=== PATIENT | female | born 1990 | race African-American/Black ===

== ENCOUNTER 2016-11-16 17:16 | Inpatient (IN) | payer OTHER ==
[2016-11-16 17:22] VITALS: BMI 33.3
--- NOTE | 2016-11-16 17:45 | PDOC ---
History of Present Illness - General History Source: Patient Exam Limitations: No Limitations - History of Present Illness Initial Comments: 11/16/16 18:31 The patient is a 26 year old female with a significant past medical history of asthma and fibroids, who presents to the ED with crampy left sided abdominal pain that began one week ago. She has associated symptoms of urination frequency and urgency, but denies hematuria, dysuria. She describes the abdominal pain as 9.5/10 in severity. Patient states the pain is worse in the morning. She states she had Ibuprofen 800mg but with no alleviation. She denies fever, chills, nausea, vomiting, diarrhea. She states she went to see her CREAM DIPPER Dr. Sanchez for vaginal bleeding and pain. She states she found a fibroid the size of a grapefruit. She was given OCP , which helped stopped the bleeding but not the pain. LMP: September 10- October 26 No allergies to meds Denies smoking cigarettes, drug use. She drinks occasionally. <José Luis Richardson - Last Filed: 11/16/16 22:26> <Lien Mcdaniel - Last Filed: 11/16/16 23:31> - General Chief Complaint: Pain Stated Complaint: ABD PAIN Time Seen by Provider: 11/16/16 17:37 Past History <José Luis Richardson - Last Filed: 11/16/16 22:26> - Past Medical History Other medical history: NONE - Psycho/Social/Smoking Cessation Hx Anxiety: No Suicidal Ideation: No Smoking History: Never smoked Hx Alcohol Use: Yes Drug/Substance Use Hx: No Substance Use Type: None <Lien Mcdaniel - Last Filed: 11/16/16 23:31> - Past Medical History Allergies/Adverse Reactions: Allergies Allergy/AdvReac Type Severity Reaction Status Date / Time No Known Allergies Allergy Verified 11/16/16 17:22 Home Medications: Ambulatory Orders NK [No Known Home Medication] 11/16/16 Review of Systems - Review of Systems Able to Perform ROS?: Yes Comments:: 11/16/16 18:31 CONSTITUTIONAL: Absent: fever, chills, diaphoresis, generalized weakness, malaise, loss of appetite HEENT: Absent: rhinorrhea, nasal congestion, throat pain, throat swelling, difficulty swallowing, mouth swelling, ear pain, eye pain, visual Changes CARDIOVASCULAR: Absent: chest pain, syncope, palpitations, irregular heart rate, lightheadedness , peripheral edema RESPIRATORY: Absent: cough, shortness of breath, dyspnea with exertion, orthopnea, wheezing, stridor, hemoptysis GASTROINTESTINAL: Present: left sided abdominal pain. Absent: abdominal distension, nausea, vomiting, diarrhea, constipation, melena, hematochezia GENITOURINARY: Present: urgency, frequency. Absent: dysuria, hesitancy, hematuria, flank pain, genital pain MUSCULOSKELETAL: Absent: myalgia, arthralgia, joint swelling SKIN: Absent: rash, itching, pallor HEMATOLOGIC/IMMUNOLOGIC: Absent: easy bleeding, easy bruising, lymphadenopathy, frequent infections ENDOCRINE: Absent: unexplained weight gain, unexplained weight loss, heat intolerance, cold intolerance NEUROLOGIC: Absent: headache, focal weakness or paresthesias, dizziness, unsteady gait, seizure, mental status changes, bladder or bowel incontinence PSYCHIATRIC: Absent: anxiety, depression, suicidal or homicidal ideation, hallucinations. <José Luis Richardson - Last Filed: 11/16/16 22:26> *Physical Exam - Vital Signs Last Vital Signs Temp Pulse Resp BP Pulse Ox 98.5 F 84 20 114/54 100 11/16/16 17:18 11/16/16 17:18 11/16/16 17:18 11/16/16 17:18 11/16/16 17:18 - Physical Exam Comments: 11/16/16 18:33 GENERAL: Well developed, well nourished. Awake and alert. No acute distress. HEENT: Normocephalic, atraumatic. PERRLA, EOMI. No conjunctival pallor. Sclera are non- icteric. Moist mucous membranes. Oropharynx is clear. NECK: Supple. Full ROM. No JVD. Carotid pulses 2+ and symmetric, without bruits. No thyromegaly. No lymphadenopathy. CARDIOVASCULAR: Regular rate and rhythm. No murmurs, rubs, or gallops. Distal pulses are 2+ and symmetric. PULMONARY: No evidence of respiratory distress. Lungs clear to auscultation bilaterally. No wheezing, rales or rhonchi. ABDOMINAL: Adnexal tenderness, more left lower quadrant. No rebound or guarding. No organomegaly. Normoactive bowel sounds. MUSCULOSKELETAL Normal range of motion at all joints. No bony deformities or tenderness. No CVA tenderness. EXTREMITIES: No cyanosis. No clubbing. No edema. No calf tenderness. SKIN: Warm and dry. Normal capillary refill. No rashes. No jaundice. NEUROLOGICAL: Alert, awake, appropriate. Cranial nerves 2-12 intact. No deficits to light touch and temperature in face, upper extremities and lower extremities. No motor deficits in the in face, upper extremities and lower extremities. Normoreflexic in the upper and lower extremities. Normal speech. Toes are down-going bilaterally. Gait is normal without ataxia. PSYCHIATRIC: Cooperative. Good eye contact. Appropriate mood and affect. <José Luis Richardson - Last Filed: 11/16/16 22:26> - Vital Signs Last Vital Signs Temp Pulse Resp BP Pulse Ox 98.5 F 84 20 114/54 100 11/16/16 17:18 11/16/16 17:18 11/16/16 17:18 11/16/16 17:18 11/16/16 17:18 <Lien Mcdaniel - Last Filed: 11/16/16 23:31> ED Treatment Course - LABORATORY CBC & Chemistry Diagram: 11/16/16 18:27 11/16/16 19:25 - RADIOLOGY Radiology Studies Ordered: 11/16/16 22:26 EXAM: ULTRASOUND PELVIS, COMPLETE AND TRANSVAGINAL ULTRASOUND AND DUPLEX SCAN PELVIS, COMPLETE No ovarian torsion. Color flow with appropriate arterial and venous waveforms on the left and arterial waveforms on the right. No free fluid. Enlarged ureterus containing a 7.0 cm fibroid. Endometrial stripe complex not well seen. Unremarkable visualized portion of bladder. THIS DOCUMENT HAS BEEN ELECTRONICALLY SIGNED Marguerite Wray M.D. 11/16/2016 22:20 EST <José Luis Richardson - Last Filed: 11/16/16 22:26> - LABORATORY CBC & Chemistry Diagram: 11/16/16 18:27 11/16/16 19:25 <Lien Mcdaniel - Last Filed: 11/16/16 23:31> Medical Decision Making - Medical Decision Making 11/16/16 23:28 26-year-old female who is not . She has a history of fibroids and has had some pain Ultrasound shows a 7 cm uterine fibroid, no torsion, no masses CBC and chemistries and urine were unremarkable She is stable vital signs and no fever I called Dr. Fernandez who was covering for Dr. Yamini Cullen and Dr. Silva said this patient was going to be admitted to have a hysterectomy During the whole patient encounter. The patient never said that she knew she was having a hysterectomy tomorrow. We did NOT receive a call from the community board member prior to the patient's arrival. I noticed now that Dr. Silva placed orders into the computer <Lien Mcdaniel - Last Filed: 11/16/16 23:31> *DC/Admit/Observation/Transfer - Attestations Scribe Attestion: 11/16/16 18:33 Documentation prepared by José Luis Richardson, acting as auditor medical claims for Lien Mcdaniel MD. <José Luis Richardson - Last Filed: 11/16/16 22:26> - Discharge Dispostion Admit: Yes <Lien Mcdainel - Last Filed: 11/16/16 23:31> Diagnosis at time of Disposition: Pelvic pain Fibroid Qualifiers: Uterine leiomyoma location: unspecified location Qualified Code(s): D25.9 - Leiomyoma of uterus, unspecified - Referrals Referrals: Lashae Watts [Primary Care Provider] - - Patient Instructions
[2016-11-16 18:37] LABS: BASOPHIL 1.2 % (0-2.0); MCH 28.2 pg (25.7-33.7); MCHC 32.6 g/dl (32.0-36.0); MEAN CELL VOLUME 86.6 fl (80-96); MEAN PLT VOLUME 9.3 fl (7.5-11.1); NEUTROPHILS 55.5 % (42.8-82.8); PLATELET COUNT 289 K/MM3 (134-434); RDW 13.6 % (11.6-15.6); WHITE BLOOD COUNT 9.9 K/mm3 (4.0-10.0)
[2016-11-16 18:38] LABS: URINE APPEARANCE CLEAR; URINE BILIRUBIN NEGATIVE (NEGATIVE); URINE BLOOD NEGATIVE (NEGATIVE); URINE COLOR YELLOW; URINE GLUCOSE (UA) NEGATIVE (NEGATIVE); URINE KETONE TRACE (NEGATIVE); URINE LEUK ESTERASE NEGATIVE (NEGATIVE); URINE NITRITE NEGATIVE (NEGATIVE); URINE PROTEIN NEGATIVE (NEGATIVE); URINE UROBILINOGEN NEGATIVE mg/dL (0.2-1.0)
[2016-11-16 20:16] LABS: ALBUMIN 3.3 g/dl (3.4-5.0); ANION GAP 7 (8-16); BILIRUBIN,TOTAL 0.1 mg/dL (0.2-1.0); CO2 26 mmol/L (21-32); CREATININE 0.9 mg/dL (0.55-1.02); GLUCOSE,RANDOM 92 mg/dL (74-106); SGOT/AST 9 U/L (15-37); SGPT/ALT 15 U/L (12-78)
[2016-11-16 20:17] LABS: ALK PHOS 46 U/L (45-117)
[2016-11-16] MEDS ORDERED: ACETAMINOPHEN 325 MG TABLET (FP) PO PRN (23:09)
[2016-11-16] MEDS: LACTATED RINGERS SOLUTION 1,000 ML IV SCH (23:20)
[2016-11-17] MEDS: LACTATED RINGERS SOLUTION 1,000 ML IV SCH ×2 (05:02→21:18)
[2016-11-17] MEDS ORDERED: ROPIVACAINE HCL 0.5% 30ML VIAL ONE (10:57)
[2016-11-17] MEDS ORDERED: MIDAZOLAM HCL 2 MG/2 ML SINGLE DOSE VIAL ONE ×2 (11:09)
[2016-11-17] MEDS ORDERED: ceFAZolin SODIUM 1 GM VIAL IVPB ONE ×2 (12:50)
[2016-11-17] MEDS ORDERED: LIDOCAINE HCL/PF 2% SDV 5ML VIAL ONE (12:59)
[2016-11-17] MEDS ORDERED: PROPOFOL 20 ML ONE (12:59)
[2016-11-17] MEDS ORDERED: DEXAMETHASONE SOD PHOSPHATE 4 MG/1 ML VIAL ONE ×2 (13:00)
[2016-11-17] MEDS ORDERED: ROCURONIUM BROMIDE 50 MG/5 ML VIAL ONE (13:00)
[2016-11-17] MEDS ORDERED: VASOPRESSIN 20 UNITS/ML VIAL IV ONE (13:02)
[2016-11-17] MEDS ORDERED: ONDANSETRON 4 MG/2 ML VIAL IVPUSH PRN ×2 (13:16→14:23)
[2016-11-17] MEDS ORDERED: HYDROmorphone HCL CARPU-JECT 1 MG/1 ML DISP.SYRIN IVPUSH PRN (13:16)
[2016-11-17] MEDS ORDERED: LACTATED RINGERS SOLUTION 1,000 ML IV SCH ×3 (13:30→14:23)
[2016-11-17] MEDS: HYDROmorphone HCL CARPU-JECT 1 MG/1 ML DISP.SYRIN IVPUSH PRN ×4 (14:05→14:25)
[2016-11-17] MEDS ORDERED: HYDROmorphone HCL CARPU-JECT 2 MG/1 ML DISP.SYRIN ONE (14:08)
--- NOTE | 2016-11-17 14:14 | OP ---
Operative Note - Note: Operative Date: 11/17/16 Pre-Operative Diagnosis: Leiomyoma of uterus Operation: Open abdominal myomectomy Post-Operative Diagnosis: Same as Pre-op Surgeon: Yamini Sanchez Professional Bass Fisherman: Heri Goodwin Anesthesiologist/RING STAMPER: Getachew Wu Anesthesia: General Specimens Removed: Leiomyoma x3 Estimated Blood Loss (mls): 50 Fluid Volume Replaced (mls): 1,000 Operative Report Dictated: Yes
--- NOTE | 2016-11-17 14:14 | SURG ---
Surgery Engineering And Scientific Programmer Note Engineering And Scientific Programmer: Heri Goodwin PA-C Date of Service: 11/17/16 Diagnosis: Leiomyoma of uterus Procedure: Open abdominal myomectomy I was present for the entirety of the operative procedure. For further detail, please refer to operative report. Visit type - Case Type Case Type: ED Admission - New patient This patient is new to me today: Yes Date on this admission: 11/17/16
[2016-11-17] MEDS: HYDROmorphone HCL CARPU-JECT 1 MG/1 ML DISP.SYRIN IVPB PRN ×2 (16:47→21:19)
[2016-11-17] MEDS: traMADol HCL 50 MG TABLET PO SCH ×2 (17:39→21:00)
[2016-11-18] MEDS: traMADol HCL 50 MG TABLET PO SCH ×3 (02:45→13:41)
[2016-11-18] MEDS: LACTATED RINGERS SOLUTION 1,000 ML IV SCH (06:31)
[2016-11-18 08:00] LABS: MCH 28.7 pg (25.7-33.7); MCHC 33.1 g/dl (32.0-36.0); MEAN CELL VOLUME 86.6 fl (80-96); MEAN PLT VOLUME 9.3 fl (7.5-11.1); PLATELET COUNT 266 K/MM3 (134-434); RDW 13.4 % (11.6-15.6); WHITE BLOOD COUNT 17.2 K/mm3 (4.0-10.0)
[2016-11-18 08:39] LABS: ANION GAP 7 (8-16); CALCIUM 8.6 mg/dL (8.5-10.1); CO2 27 mmol/L (21-32); CREATININE 0.6 mg/dL (0.55-1.02); GLUCOSE,RANDOM 93 mg/dL (74-106)
--- NOTE | 2016-11-18 09:05 | PN ---
Progress Note, Physician Chief Complaint: Post op History of Present Illness: 26 yo with Leiomyoma of the uterus, status post abdominal myomectomy, seen and evaluated. She c/o incision pain and nausea. - Current Medication List Current Medications: Active Medications Acetaminophen (Tylenol -) 650 mg PO Q4H PRN PRN Reason: FEVER OR PAIN Hydromorphone HCl (Dilaudid Injection -) 0.25 mg IVPUSH [id number] PRN PRN Reason: PAIN Stop: 11/20/16 13:17 Last Admin: 11/17/16 14:25 Dose: 0.25 mg Hydromorphone HCl (Dilaudid Injection -) 1 mg IVPB Q4H PRN PRN Reason: PAIN Stop: 11/18/16 16:35 Last Admin: 11/17/16 21:19 Dose: 1 mg Lactated Ringer's (Lactated Ringers Solution) 1,000 mls @ 125 mls/hr IV ASDIR TIFFANIE Last Admin: 11/18/16 06:31 Dose: 125 mls/hr Ibuprofen (Motrin -) 800 mg PO Q8H PRN PRN Reason: FEVER Tramadol HCl (Ultram -) 50 mg PO Q6H [facility] Last Admin: 11/18/16 02:45 Dose: 50 mg - Objective Vital Signs: Vital Signs Temperature 98.1 F 11/18/16 05:45 Pulse Rate 81 11/18/16 05:45 Respiratory Rate 20 11/18/16 05:45 Blood Pressure 114/64 11/18/16 05:45 O2 Sat by Pulse Oximetry (%) 99 11/17/16 21:32 Constitutional: Yes: Well Nourished Eyes: Yes: Conjunctiva Clear HENT: Yes: Atraumatic Neck: Yes: Supple, Trachea Midline Cardiovascular: Yes: Regular Rate and Rhythm Respiratory: Yes: Regular, CTA Bilaterally Gastrointestinal: Yes: Normal Bowel Sounds Genitourinary: Yes: WNL Breast(s): Yes: WNL Musculoskeletal: Yes: WNL Extremities: Yes: WNL Wound/Incision: Yes: Clean/Dry, Dressing Dry and Intact Neurological: Yes: Alert, Oriented ...Motor Strength: WNL Psychiatric: Yes: Alert, Oriented Labs: CBC, BMP 11/18/16 06:00 11/18/16 06:00 Problem List - Problems (1) Status post myomectomy Code(s): Z98.890 - OTHER SPECIFIED POSTPROCEDURAL STATES Assessment/Plan Status post Myomectomy Stable D/C IV Analgesia Motrin PO PRN pain Clear liquid diet Ambulation Continue Post op care
--- NOTE | 2016-11-18 14:13 | OP ---
DATE OF OPERATION: 11/17/2016 PREOPERATIVE DIAGNOSIS: Leiomyomatous uterus. OPERATION: Abdominal myomectomy. POSTOPERATIVE DIAGNOSIS: Leiomyomatous uterus. SURGEON: Yamini Sanchez MD MANAGER HUMAN CAPITAL: ANGELINA Engel. ANESTHESIA: General. DESCRIPTION OF PROCEDURE: Patient was taken to the operating room, placed in supine position, prepped and draped in the usual sterile fashion. Timeout was performed in accordance hospital regulation. Pfannenstiel skin incision was made with a scalpel. Cautery was then used to go through the layers of abdominal wall to the level of the fascia. Fascia was cut in the midline, and cautery was then used to open the fascia in smiling fashion. Kochers were then used to bluntly and sharply dissect the rectus muscle and fascia. Muscle was split in the midline, peritoneal cavity was then entered and carried up and downward. The uterus was then exteriorized. A large 8-cm posterior myoma was noted and 2 small myomas anteriorly and another less than 1 cm and another 3-cm myoma anteriorly. Tourniquet was placed of the uterus. Progestin was then infiltrated into the of the uterus and the myometrium. A transverse posterior incision was made approximately 8 cm in size down to the level of the myoma. Blunt and sharp technique was then used to enucleate the myoma. The uterus was then closed in layers using 0 Vicryl suture continuous and locking, imbricating the serosal layer with the 0 Vicryl suture. The other myomas were removed, enucleated out using cautery and blunt and sharp technique, and then was closed using 0 Vicryl suture. [id number] sutures were used to tie off any bleeding and to maintain hemostasis. After hemostasis was achieved, Interceed was placed over the uterus, and the uterus was then interiorized, abdominal sweep done. Peritoneum closed using 0 Vicryl suture. Fascia was then closed using 0 Vicryl suture in 2 ports. Skin was then closed using 4-0 Biosyn suture in subcuticular fashion. Wound was washed and dressed. Patient tolerated the procedure well, was taken to recovery room in stable condition. Estimated blood loss 50 mL. YAMINI SANCHEZ M.D. ANDREINA/[id number]
--- NOTE | 2016-11-18 14:52 | PN ---
Progress Note (short form) - Note Progress Note: Called due to dizziness will call hospitalist to evaluate patient cbc stat nurse thinks it may be a result Ultram pt had dilaudid in am pt admits to meds make sleepy 86/70 inc to 200cchr pulse 96 prior O2 given repeat Bp 112/64 Hr 84
--- NOTE | 2016-11-18 15:52 | CONSULT ---
Consultation: REQUESTING PROVIDER: Dr. Sanchez CONSULT REQUEST: We have been asked to medically evaluate this patient for dizziness HISTORY OF PRESENT ILLNESS: 26 year old F POD#1 s/p open abdominal myomectomy for fibroids with a chief complaint of dizziness. Patient states around 3 pm, she stood up and suddenly felt dizzy. She describes a sensation of lightheadedness. She sat back down immediately and felt better. Patient denies headache, chest pain, shortness of breath, slurred speech, weakness, tinnitus, hearing loss. Patient received a dose of dilaudid last night and three doses of ultram today (last dose at 230). Blood pressure after sitting back down was 86/70. Patient's fluids increased to 200cc/hr, BP improved to 112/64. REVIEW OF SYSTEMS: CONSTITUTIONAL: Absent: fever, chills, diaphoresis, generalized weakness, malaise, loss of appetite, weight change HEENT: Absent: rhinorrhea, nasal congestion, throat pain, throat swelling, difficulty swallowing, mouth swelling, ear pain, eye pain, visual changes CARDIOVASCULAR: Absent: chest pain, syncope, palpitations, irregular heart rate, peripheral edema Present: Lightheadedness RESPIRATORY: Absent: cough, shortness of breath, dyspnea with exertion, orthopnea, wheezing, stridor, hemoptysis GASTROINTESTINAL: Absent: abdominal distension, nausea, vomiting, diarrhea, constipation, melena, hematochezia Present: abdominal pain GENITOURINARY: Absent: dysuria, frequency, urgency, hesitancy, hematuria, flank pain, genital pain MUSCULOSKELETAL: Absent: myalgia, arthralgia, joint swelling, back pain, neck pain SKIN: Absent: rash, itching, pallor HEMATOLOGIC/IMMUNOLOGIC: Absent: easy bleeding, easy bruising, lymphadenopathy, frequent infections ENDOCRINE: Absent: unexplained weight gain, unexplained weight loss, heat intolerance, cold intolerance NEUROLOGIC: Absent: headache, focal weakness or paresthesias, unsteady gait, seizure, mental status changes, bladder or bowel incontinence Present: dizziness PSYCHIATRIC: Absent: anxiety, depression, suicidal or homicidal ideation, hallucinations. PHYSICAL EXAMINATION Vital Signs - 24 hr 11/17/16 11/17/16 11/17/16 15:55 16:10 16:20 Temperature 98.9 F 98.5 F Pulse Rate 73 74 81 Respiratory 14 16 20 Rate Blood Pressure 137/74 139/71 144/75 O2 Sat by Pulse 100 100 99 Oximetry (%) 11/17/16 11/17/16 11/17/16 17:53 21:16 21:32 Temperature 98.8 F 97.9 F 97.9 F Pulse Rate 79 82 82 Respiratory 20 20 20 Rate Blood Pressure 133/68 127/70 127/70 O2 Sat by Pulse 99 Oximetry (%) 11/18/16 11/18/16 11/18/16 01:17 05:45 09:00 Temperature 98.0 F 98.1 F 99.0 F Pulse Rate 76 81 73 Respiratory 20 20 20 Rate Blood Pressure 127/60 114/64 131/71 O2 Sat by Pulse 20 L Oximetry (%) GENERAL: Awake, alert, and fully oriented, in no acute distress. HEAD: Normal with no signs of trauma. EYES: Extraocular movements intact, sclera anicteric, conjunctiva clear. No lid lag. EARS, NOSE, THROAT: oropharynx clear without exudates. Moist mucous membranes. NECK: Normal range of motion, supple without lymphadenopathy, JVD, or masses. LUNGS: Breath sounds equal, clear to auscultation bilaterally.(Only anterior lungs auscultated due to pain) No wheezes, and no crackles. No accessory muscle use. HEART: Regular rate and rhythm, normal S1 and S2 without murmur, rub or gallop. ABDOMEN: Soft, diffuse tenderness post op, not distended, hypoactive bowel sounds, + guarding, no rebound, no masses. No hepatomegaly or splenomegaly. MUSCULOSKELETAL: Normal range of motion at all joints. No bony deformities or tenderness. No CVA tenderness. UPPER EXTREMITIES: 2+ radial pulses, warm, well-perfused. No cyanosis. No clubbing. Cap refill <2 seconds. No peripheral edema. LOWER EXTREMITIES: 2+ DP pulses, warm, well-perfused. No calf tenderness. No peripheral edema. Negative cassie's sign NEUROLOGICAL: Cranial nerves II-XII intact. Strength difficult to assess due to pain. 2+ brachial reflexes. Normal speech. Gait not observed PSYCHIATRIC: Cooperative. Good eye contact. Appropriate mood and affect. SKIN: Warm, dry, normal turgor, no rashes or lesions noted. Laboratory Results - last 24 hr 11/18/16 11/18/16 06:00 06:00 WBC 17.2 H D RBC 4.36 Hgb 12.5 Hct 37.8 MCV 86.6 MCH 28.7 MCHC 33.1 RDW 13.4 Plt Count 266 MPV 9.3 Sodium 137 Potassium 4.2 Chloride 103 Carbon Dioxide 27 Anion Gap 7 L BUN 5 L D Creatinine 0.6 D Random Glucose 93 Calcium 8.6 Active Medications Generic Name Dose Route Start Last Admin Trade Name Freq PRN Reason Stop Dose Admin Acetaminophen 650 mg 11/17/16 14:23 Tylenol - PO Q4H PRN FEVER OR PAIN Hydromorphone HCl 0.25 mg 11/17/16 14:23 11/17/16 14:25 Dilaudid Injection - IVPUSH 11/20/16 13:17 0.25 mg [id number] PRN Administration PAIN Hydromorphone HCl 1 mg 11/17/16 16:36 11/17/16 21:19 Dilaudid Injection - IVPB 11/18/16 16:35 1 mg Q4H PRN Administration PAIN Ibuprofen 800 mg 11/18/16 08:59 Motrin - PO Q8H PRN FEVER Tramadol HCl 50 mg 11/17/16 14:30 11/18/16 13:41 Ultram - PO 50 mg Q6H TIFFANIE Administration ASSESSMENT/PLAN: 26 year old F POD 1 s/p abdominal myomectomy presenting with dizziness after standing up. #Dizziness -Given the patient's recent intraabdominal surgery and decreased PO intake per pt, she is likely volume depleted leading to orthostatic hypotension, which is further exacerbated by opioid use. -BP 86/70, improved upon sitting down and with IVF to 112/64 -D/c ultram as dizziness is a common side effect (10-33%) as well as orthostatic hypotension (2-5%) -Give 1 L NS bolus followed by IVF NS 150 cc/hr. #Asthma -Not currently active -Patient states asthma has been in remission for past few years -Pt will follow up outpatient. #Ppx DVT ppx - Heparin SQ 5000 units Q8 - SCDs #FEN/GI -IVF NS at 150 cc/hr -Will check BMP, Mg, and phos in the AM. -Patient on clear liquid diet. Advance as tolerated per primary team once patient has bowel function. Dispo: We will continue to follow the patient. Thank you for this consultative opportunity. Visit type - Emergency Visit Emergency Visit: No - New Patient This patient is new to me today: Yes Date on this admission: 11/18/16 - Critical Care Critical Care patient: No
[2016-11-18] MEDS ORDERED: SODIUM CHLORIDE 1,000 ML IV STA (16:17)
[2016-11-18] MEDS ORDERED: HYDROmorphone HCL CARPU-JECT 1 MG/1 ML DISP.SYRIN IVPB PRN (16:47)
[2016-11-18] MEDS: IBUPROFEN 400 MG TABLET (FP) PO PRN (17:57)
[2016-11-18] MEDS: SODIUM CHLORIDE 1,000 ML IV SCH (18:00)
--- NOTE | 2016-11-18 18:07 | PN ---
Teaching Attending Note Name of Resident: Bradley Lopez ATTENDING PHYSICIAN STATEMENT I saw and evaluated the patient. I reviewed the resident's note and discussed the case with the resident. I agree with the resident's findings and plan as documented. SUBJECTIVE: OBJECTIVE: Vital Signs Period Temp Pulse Resp BP Sys/Saini Pulse Ox Last 24 Hr 97.9 F-99.0 F 73-84 20-20 87-131/54-71 20-99 ASSESSMENT AND PLAN:
[2016-11-18 18:19] LABS: BASOPHIL 0.6 % (0-2.0); EOSINOPHIL 0.1 % (0-4.5); MCH 28.6 pg (25.7-33.7); MCHC 33.1 g/dl (32.0-36.0); MEAN CELL VOLUME 86.4 fl (80-96); MEAN PLT VOLUME 9.6 fl (7.5-11.1); NEUTROPHILS 80.9 % (42.8-82.8); PLATELET COUNT 275 K/MM3 (134-434); RDW 13.4 % (11.6-15.6); WHITE BLOOD COUNT 17.3 K/mm3 (4.0-10.0)
[2016-11-18] MEDS: ACETAMINOPHEN 325 MG TABLET (FP) PO PRN (21:31)
[2016-11-18] MEDS: HEPARIN NA (PORCINE) 5,000 UNITS/ML 1ML VIAL SQ SCH (21:33)
[2016-11-18] MEDS ORDERED: HEPARIN NA (PORCINE) 5,000 UNITS/ML 1ML VIAL SQ SCH (22:00)
[2016-11-19] MEDS: SODIUM CHLORIDE 1,000 ML IV SCH (01:30)
[2016-11-19] MEDS: ACETAMINOPHEN 325 MG TABLET (FP) PO PRN ×2 (06:18→13:26)
[2016-11-19] MEDS: HEPARIN NA (PORCINE) 5,000 UNITS/ML 1ML VIAL SQ SCH ×2 (06:18→14:50)
--- NOTE | 2016-11-19 06:21 | PN ---
Progress Note (SOAP) - Subjective Chief Complaint: Pt doing well passing flatus - Current Medications Current Medications: Active Medications Acetaminophen (Tylenol -) 650 mg PO Q4H PRN PRN Reason: FEVER OR PAIN Last Admin: 11/19/16 06:18 Dose: 650 mg Heparin Sodium (Porcine) (Heparin -) 5,000 unit SQ TID TIFFANIE Last Admin: 11/19/16 06:18 Dose: 5,000 unit Hydromorphone HCl (Dilaudid Injection -) 1 mg IVPB Q6H PRN PRN Reason: PAIN Sodium Chloride (Normal Saline -) 1,000 mls @ 150 mls/hr IV ASDIR TIFFANIE Stop: 11/19/16 23:09 Last Admin: 11/19/16 01:30 Dose: 150 mls/hr Ibuprofen (Motrin -) 800 mg PO Q8H PRN PRN Reason: FEVER Last Admin: 11/18/16 17:57 Dose: 800 mg - Objective Vital Signs: Vital Signs Temperature 99.2 F 11/19/16 06:00 Pulse Rate 90 11/19/16 06:00 Respiratory Rate 18 11/19/16 06:00 Blood Pressure 122/63 11/19/16 06:00 O2 Sat by Pulse Oximetry (%) 98 11/18/16 21:00 Constitutional: Yes: Well Nourished, No Distress Cardiovascular: Yes: WNL Respiratory: Yes: WNL Gastrointestinal: Yes: WNL, Normal Bowel Sounds, Soft Musculoskeletal: Yes: WNL Extremities: Yes: WNL Edema: No Wound/Incision: Yes: Clean/Dry, Well Approximated, Steri Strips Neurological: Yes: WNL, Alert, Oriented Labs Lab Results: CBC, BMP 11/18/16 16:00 11/18/16 06:00 Assessment/Plan POD 2 stable Plan DC home
[2016-11-19] MEDS ORDERED: AMOX TR/POT CLAV 875MG/125MG TABLETS (FP) PO SCH (08:00)
[2016-11-19 08:19] LABS: BASOPHIL 0.3 % (0-2.0); EOSINOPHIL 0.4 % (0-4.5); MCH 28.8 pg (25.7-33.7); MCHC 32.8 g/dl (32.0-36.0); MEAN CELL VOLUME 87.9 fl (80-96); MEAN PLT VOLUME 9.6 fl (7.5-11.1); PLATELET COUNT 228 K/MM3 (134-434); RDW 13.5 % (11.6-15.6); WHITE BLOOD COUNT 12.8 K/mm3 (4.0-10.0)
[2016-11-19 08:33] LABS: ANION GAP 7 (8-16); CALCIUM 8.1 mg/dL (8.5-10.1); CO2 26 mmol/L (21-32); CREATININE 0.6 mg/dL (0.55-1.02); GLUCOSE,RANDOM 88 mg/dL (74-106); MAGNESIUM 2.1 mg/dL (1.8-2.4); PHOSPHOROUS 2.7 mg/dL (2.5-4.9)
[2016-11-19 09:10] VITALS: BP 129/74; PULSE 87; TEMP 99
[2016-11-19] MEDS: IBUPROFEN 400 MG TABLET (FP) PO PRN (13:25)
--- NOTE | 2016-11-19 14:56 | EKG ---
Test Reason : Blood Pressure : / mmHG Vent. Rate : 074 BPM Atrial Rate : 074 BPM P-R Int : 154 ms QRS Dur : 086 ms QT Int : 380 ms P-R-T Axes : 043 019 016 degrees QTc Int : 421 ms NORMAL SINUS RHYTHM WITH SINUS ARRHYTHMIA NONSPECIFIC T WAVE ABNORMALITY ABNORMAL ECG NO PREVIOUS ECGS AVAILABLE Confirmed by SARA CACERES MD ([id number]) on 11/19/2016 2:56:20 PM Referred By: Confirmed By:SARA CACERES MD
--- NOTE | 2016-11-19 17:54 | PATH ---
Surgical Pathology Report Patient Name: BRAVO BALDWIN [facility]. Rec. #: [id number] /Age/Gender: 1990 (Age: 26) / F Account: [id number] Location: [facility] OBS/CREPE LAMINATOR OPERATOR Taken: 11/17/2016 Received: 11/18/2016 Reported: 11/19/2016 Physicians: Alonzo Oliva M.D. Specimen(s) Received UTERINE FIBROID/MYOMA Clinical History Fibroid, pelvic pain Final Diagnosis UTERINE FIBROIDS, ABDOMINAL MYOMECTOMY: LEIOMYOMATA WITH DEGENERATIVE CHANGES (LARGEST 7.0 CM). Electronically Signed Lukasz Calle M.D. Gross Description Received in formalin labeled "uterine fibroids" is a 208 g aggregate of 4 griggs, irregular fibroids ranging from 0.7-7.0 cm in greatest dimension. Sectioning reveals griggs, firm to rubbery parenchyma with whorled architecture and focal areas of softening. Log Loader Helper sections are submitted in 6 cassettes as follows: 1-entirely submitted two smallest fibroids; 2-collections representative sections of one fibroid; 2-7-jkcwopjbsglale sections of largest fibroid. DL/11/18/2016 saudi/11/18/2016
== END 2016-11-19 14:45 | disposition home or self-care (01) | DRG 519 ==
LOC: JER 17:16 → JERBED 23:34 → J3W 11-17 01:04
PROVIDERS: ADMIT Obstetrics & Gynecology; ATTEND Obstetrics & Gynecology
PROC: 0UB90ZZ Excision of Uterus, Open Approach (ICD-10-PCS; principal; 2016-11-17 12:30)
DX: D25.9 Leiomyoma of uterus, unspecified (principal); E66.8 Other obesity; Z68.33 Body mass index [BMI] 33.0-33.9, adult; Z71.3 Dietary counseling and surveillance; D72.823 Leukemoid reaction; J45.909 Unspecified asthma, uncomplicated
CPT/HCPCS: 36415; 76830-TC; 80048; 80053; 81003; 83735; 84100; 84703; 85025; 85027; 86850; 86900; 86901; 88305-TC; 93005; 93010; 94010; 94760; 99283-25; J1644

== ENCOUNTER 2022-05-21 08:28 | Day surgery (SDC) | payer BC ==
[2022-05-15 11:05] VITALS: BMI 38.2
[2022-05-21] MEDS ORDERED: BUPIVACAINE LIPOSOME/PF (EXPAREL) 266 MG/20 ML VIAL ONE (09:26)
[2022-05-21] MEDS ORDERED: BUPIVACAINE HCL/PF 0.5% (5 MG/ML) 30 ML VIAL IJ ONE (09:26)
[2022-05-21] MEDS ORDERED: BUPIVACAINE HCL/EPINEPHRINE/PF 30 ML VIAL IJ ONE (09:32)
[2022-05-21] MEDS ORDERED: MIDAZOLAM HCL 2 MG/2 ML SINGLE DOSE VIAL ONE (09:43)
[2022-05-21] MEDS ORDERED: DEXAMETHASONE SOD PHOSPHATE 4 MG/1 ML VIAL ONE ×2 (09:43→11:56)
[2022-05-21] MEDS ORDERED: ONDANSETRON 4 MG/2 ML VIAL ONE ×2 (09:43→11:56)
[2022-05-21] MEDS ORDERED: PROPOFOL 20 ML ONE (10:09)
[2022-05-21] MEDS ORDERED: ceFAZolin SODIUM 1 GM VIAL ONE (10:13)
[2022-05-21] MEDS ORDERED: TRANEXAMIC ACID 1000 MG/10 ML VIAL ONE (10:17)
[2022-05-21] MEDS ORDERED: SODIUM CHLORIDE 0.9% P/F 10 ML VIAL IJ ONE (10:17)
[2022-05-21] MEDS ORDERED: HYDROmorphone HCL/PF 1 MG/ML VIAL ONE (11:25)
[2022-05-21] MEDS ORDERED: VANCOMYCIN 1,000 MG VIAL (RESTRICTED TO ID ONLY) ONE (11:28)
[2022-05-21] MEDS ORDERED: KETOROLAC TROMETHAMINE 30 MG/1 ML VIAL ONE (11:56)
[2022-05-21] MEDS ORDERED: oxyCODONE HCL 5 MG TABLET PO PRN ×2 (12:07)
[2022-05-21] MEDS ORDERED: ONDANSETRON 4 MG/2 ML VIAL IVPUSH PRN (12:07)
[2022-05-21] MEDS ORDERED: LACTATED RINGERS SOLUTION 1,000 ML IV SCH (12:15)
[2022-05-21] MEDS ORDERED: ACETAMINOPHEN INJECTION 100 ML IVPB ONE (12:27)
[2022-05-21] MEDS ORDERED: ACETAMINOPHEN 1000 MG/100 ML BAG IVPB ONE (13:00)
[2022-05-21 14:18] VITALS: TEMP 98.5
[2022-05-21 14:22] VITALS: BP 118/74; PULSE 78; RESP 16
== END 2022-05-21 14:10 | disposition home or self-care (01) ==
LOC: FASU 08:28
PROVIDERS: ATTEND Orthopaedic Surgery
PROC: 0SQD4ZZ Repair Left Knee Joint, Percutaneous Endoscopic Approach (ICD-10-PCS; 2022-05-21)
PROC: 0QSH04Z Reposition Left Tibia with Internal Fixation Device, Open Approach (ICD-10-PCS; principal; 2022-05-21 10:33)
PROC: 0MNP4ZZ Release Left Knee Bursa and Ligament, Percutaneous Endoscopic Approach (ICD-10-PCS; 2022-05-21 10:33)
DX: M17.12 Unilateral primary osteoarthritis, left knee (principal); M25.369 Other instability, unspecified knee
CPT/HCPCS: 73560-TC-LT-FY; 84703; 94760; C1713